=== PATIENT | male | born 1950 | race Caucasian/White ===

== ENCOUNTER → 2020-10-22 | Day surgery (SDC) | payer OTHER ==
[~2020-10-22] MED LIST: ASPIRIN325 MG PO; AVAPRO150 MG PO; LEXAPRO10 MG PO; OR PHACO EYE KIT ONE; PREOP PHACO EYE KIT ONE
[2020-10-22 12:58] VITALS: BP 131/76
== END | disposition home or self-care (01) ==
LOC: OR 10:36
PROVIDERS: ATTEND Ophthalmology
DX: H25.12 Age-related nuclear cataract, left eye (principal); I25.10 Atherosclerotic heart disease of native coronary artery without angina pectoris; I10 Essential (primary) hypertension; F32.9 Major depressive disorder, single episode, unspecified; F41.1 Generalized anxiety disorder; Z01.812 Encounter for preprocedural laboratory examination; Z20.822 Contact with and (suspected) exposure to COVID-19; Z79.82 Long term (current) use of aspirin; Z95.5 Presence of coronary angioplasty implant and graft
CPT/HCPCS: 66984; U0002; V2632